=== PATIENT | female | born 1970 | race Caucasian/White ===

== ENCOUNTER → 2016-04-18 | Outpatient (REF) | payer MEDICARE, MEDICAID ==
[~2016-04-18] MED LIST: /MESA40TAB PO; AZAT50TA2 PO; FERR325T3 PO; JANU50TA8 PO; LISI5TAB PO; LOPE2CAP PO; LORA10TA2 PO; NEXI40GR PO; PRED10PA PO
== END ==
LOC: M LAB REF 16:28
PROVIDERS: ATTEND Nurse Practitioner Adult Health
DX: K51.90 Ulcerative colitis, unspecified, without complications (principal); D50.0 Iron deficiency anemia secondary to blood loss (chronic)

== ENCOUNTER 2017-04-01 09:25 | Emergency (ER) | payer MEDICARE, MEDICAID ==
[2017-04-01] MEDS: NS 1,000 ML IV ×2 (10:30→12:16)
[2017-04-01] MEDS: ONDANSETRON 4MG/2ML VIAL (J2405) IV (10:30)
[2017-04-01 10:43] LABS: BASO # 0.1 10^3/uL (0.0-0.2); BASO % 0.2 % (0.0-1.0); IMMATURE GRANULOCYTE # 0.1 10^3/uL (0-0); IMMATURE GRANULOCYTE % 0.5 % (0-0); LYMPH # 0.9 10^3/uL (1.5-4.5); LYMPH % 3.5 % (24.0-44.0); MEAN CORPUSCULAR HEMOGLOBIN 25.9 pg (27.0-33.0); MEAN CORPUSCULAR HGB CONC 32.7 g/dl (32.0-36.5); MEAN CORPUSCULAR VOLUME 79.3 fl (80.0-96.0); MONO # 0.9 10^3/uL (0.0-0.8); MONO % 3.5 % (0.0-5.0); NEUTROPHILS # 22.4 10^3/uL (1.8-7.7); NEUTROPHILS % 92.3 % (36.0-66.0); PLATELET COUNT, AUTOMATED 389 10^3/uL (150-450); RED CELL DISTRIBUTION WIDTH 14.5 % (11.5-14.5); WHITE BLOOD COUNT 24.3 10^3/uL (4.0-10.0)
[2017-04-01 10:57] LABS: ANION GAP 8 MEQ/L (8-16); BLOOD UREA NITROGEN 15 MG/DL (7-18); CALCIUM LEVEL 9.7 MG/DL (8.5-10.1); CARBON DIOXIDE LEVEL 27 MEQ/L (21-32); CHLORIDE LEVEL 100 MEQ/L (98-107); CREATININE FOR GFR 0.67 MG/DL (0.55-1.02); GLOMERULAR FILTRATION RATE > 60.0 (>58); GLUCOSE, FASTING 123 MG/DL (70-105); POTASSIUM SERUM 4.4 MEQ/L (3.5-5.1); SODIUM LEVEL 135 MEQ/L (136-145)
[2017-04-01 11:20] LABS: ALBUMIN/GLOBULIN RATIO 0.89 (1.00-1.93); ALKALINE PHOSPHATASE 99 U/L (45-117); ALT/SGPT 25 U/L (12-78); AMYLASE 55 U/L (25-115); AST/SGOT 15 U/L (7-37); BILIRUBIN,DIRECT 0.2 MG/DL (0.0-0.2); BILIRUBIN,TOTAL 0.5 MG/DL (0.2-1.0); TOTAL PROTEIN 8.5 GM/DL (6.4-8.2)
[2017-04-01] MEDS ORDERED: ISOVUE-370 76% 100ML VIAL (Q9967) As Ordered (12:46)
[2017-04-01 13:04] LABS: CONTROL LINE UCG INT CTR LINE PRESENT
[2017-04-01 13:06] LABS: LACTIC ACID SEPSIS PROTOCOL 1.3 MMOL/L (0.4-2.0)
== END 2017-04-01 15:43 | disposition home or self-care (01) ==
LOC: M ED 09:25
DX: D72.819 Decreased white blood cell count, unspecified (principal); N39.0 Urinary tract infection, site not specified; E11.9 Type 2 diabetes mellitus without complications
CPT/HCPCS: J2405

== ENCOUNTER 2017-04-25 09:57 | Day surgery (SDC) | payer MEDICARE, MEDICAID ==
[2017-04-25] MEDS ORDERED: PROPOFOL 200 MG/20 ML VIAL As Ordered (11:46)
[2017-04-25] MEDS ORDERED: LIDOCAINE 2% INJ 100 MG/5 ML SDV (FOR ANES.) As Ordered (11:46)
== END 2017-04-25 12:50 | disposition home or self-care (01) ==
LOC: M OPP 09:57
DX: Z12.11 Encounter for screening for malignant neoplasm of colon (principal); K51.90 Ulcerative colitis, unspecified, without complications; K57.30 Diverticulosis of large intestine without perforation or abscess without bleeding; K62.89 Other specified diseases of anus and rectum; I10 Essential (primary) hypertension; E11.9 Type 2 diabetes mellitus without complications; K82.9 Disease of gallbladder, unspecified; K21.9 Gastro-esophageal reflux disease without esophagitis; R12 Heartburn; D50.9 Iron deficiency anemia, unspecified; Z79.899 Other long term (current) drug therapy
CPT/HCPCS: 45380

== ENCOUNTER → 2019-12-09 | Outpatient (CLI) | payer MEDICARE, MEDICAID ==
[~2019-12-09] MED LIST changes: +ASAC800T3 PO; +FARX1TAB3 PO; +FERR325T18 PO; +FIBE62TA; +HM A5TAB4 PO; +HUMI40KI2 INJ; +INVO100T PO; +ISOVUE-370 76% 100ML VIAL As Ordered ONE; +LEVA750T7 PO; +LISI10TA4 PO; +LOPE1CAP5 PO; +LORA-674 PO; +METF-838 PO; +OZEM2INJ INJ; +PANT40TA29 PO; +PROBCAP4 PO
--- NOTE | 2019-12-29 14:02 | REP ---
CONTRAST ENHANCED CT OF THE ABDOMEN CLINICAL: History of liver abscesses. TECHNIQUE: Axial contrast enhanced images of the abdomen using 100 cc Isovue-370 intravenous contrast material with coronal and sagittal reformations. COMPARISON: 10/25/2019 FINDINGS: A pigtail catheter is identified extending just beneath the subcapsular left lobe of the liver adjacent to the falciform ligament. Subtle heterogeneous low density changes within the liver are noted representing subtle residual and resolving infectious/inflammatory changes. No significant residual abscess collection is appreciated surrounding the pigtail catheter, and only a small 1 cm fluid collection is suggested just superior to the gallbladder (image 55). The gallbladder demonstrates mild wall thickening and surrounding subtle low density changes again consistent with resolving abscesses and inflammatory changes. These findings are overall considerably improved when compared to prior examination. Spleen, pancreas, bilateral adrenal glands, and kidneys are relatively normal/stable. Left adrenal lesion suggesting adenoma is unchanged. Visualized portions of the enteric system are grossly unremarkable and without obstruction or acute inflammatory process. No ascites or free air in the visualized abdomen. No adenopathy. Abdominal aorta without aneurysm or dissection. Musculoskeletal structures are intact. Lung bases are clear. IMPRESSION: 1. Considerable improvement to the previously identified multiloculated hepatic abscesses. Minimal residual resolving inflammatory infectious changes and small 1 cm fluid collection just superior to the gallbladder and removed from the pigtail catheter. No fluid surrounds the pigtail catheter. 2. The gallbladder demonstrates mild wall thickening consistent with resolving surrounding inflammatory changes. 3. No further acute or new process appreciated. MTDD
== END ==
LOC: M RAD 10:47
PROVIDERS: ATTEND Radiology Diagnostic Radiology
DX: K75.0 Abscess of liver (principal)
CPT/HCPCS: 74160; G0463; J1642; Q9967

== ENCOUNTER → 2019-12-09 | Outpatient (CLI) | payer MEDICARE, MEDICAID ==
[~2019-12-09] MED LIST changes: -ISOVUE-370 76% 100ML VIAL As Ordered ONE
--- NOTE | 2019-12-29 14:01 | REP ---
NONCONTRAST CT OF THE ABDOMEN CLINICAL: Follow up liver abscesses. TECHNIQUE: Axial noncontrast images of the abdomen with coronal and sagittal reformations. COMPARISON: 10/25/2019 FINDINGS: A pigtail catheter is identified extending into the medial left hepatic lobe adjacent to the falciform ligament, and the previously noted abscesses have essentially completely resolved. Continued heterogeneous low density changes involving the gallbladder fossa and surrounding the gallbladder remain prominent but considerably improved and without definite drainable collection. Remainder of the liver appears grossly normal. Spleen, pancreas, right adrenal gland, and bilateral kidneys are normal. Left adrenal gland demonstrates stable 2 cm presumed adenoma. The enteric system is without obstruction or acute inflammatory process. No ascites. No free air. No significant adenopathy. Abdominal aorta without aneurysm. Musculoskeletal structures demonstrate age-related changes. Lung bases are clear. IMPRESSION: 1. Considerable improvement to the previously noted multiple hepatic abscesses. Essentially no residual fluid is identified. Heterogenous changes in the gallbladder fossa appear improved. 2. No new acute process. 3. Stable left adrenal lesion, likely adenoma. MTDD
== END ==
LOC: M RAD 08:04
PROVIDERS: ATTEND Family Medicine
DX: K75.0 Abscess of liver (principal)

== ENCOUNTER → 2019-12-09 | Outpatient (POV) | payer MEDICARE, MEDICAID ==
--- NOTE | 2019-12-10 15:19 | IRCOV ---
[facility] IR Consult Office Visit IR Consult Office Visit DATE: Dec 09, 2019 Patient's carer agreed to this telephone consultation. I spent 30 minutes reviewing patient's history, pathology and microbiology reports, imaging and in discussion with the patient's carer, on the phone. REASON FOR CONSULTATION/CHIEF COMPLAINT: Liver abscess. HISTORY OF PRESENT ILLNESS: 49-year-old female with history of Crohn's disease presented to the hospital October 24 with severe right upper quadrant pain. At that time, she had CT and MRI performed which demonstrated multiloculated hepatic abscess versus liver cancer/cholangiocarcinoma. She had a drain placed in the liver by radiology. She also had a biopsy performed of the liver lesion. Patient's pain is now subsided. Patient denies fevers or chills. Patient denies jaundice, nausea or vomiting. Patient reports recent Crohn's flare as she is off the Maisha. She was taken off Maisha treatment of this liver abscess. ALLERGIES: Please see below. HOME MEDICATIONS: Please see below. PAST MEDICAL HISTORY: Crohn's disease Hypertension Diabetes GERD PAST SURGICAL HISTORY: Left ankle fracture Tonsillectomy FAMILY HISTORY: Noncontributory SOCIAL HISTORY: Nonsmoker. No alcohol or drugs. Denies recent travel. REVIEW OF SYSTEMS: Otherwise negative PHYSICAL EXAMINATION: No video on patient site. LABORATORY DATA: 11/03/2019 hemoglobin 8.1 hematocrit 26.2 WBC 9 platelets 509 10/30/2019 sodium 142 potassium 3.5 BUN 6 creatinine 0.5 GFR greater than 60 Total bilirubin 0.4 direct bilirubin 0.3 AST 17 ALT 15 ALP 192 albumin 1.2 Lipase 67 CA 19 60.7 CEA less than 0.5 AFP less than 1.3 Liver collection: Microbiology: gram-positive rods. Gram-negative rods. BIFIDOBACTERIUM SPECIES. Pathology of liver lesion 10/29/2019: patchy necrosis and severe acute inflammation. Background liver shows steatosis and fibrosis. No malignancy. [facility] in agreement. Imaging: I personally reviewed the CT abdomen with IV contrast performed 12/09/2019. Improved appearance of multiloculated hypodense areas within the li jennie status post drain placement. No collection remains around the drain. There is persistent biliary dilation in the left hepatic lobe. The liver is nodular in contour. No ascites. There is persistent abnormal thickening and density around the gallbladder with possible common bile duct dilation. There is diverticulosis. ASSESSMENT/PLAN: 49-year-old female with acute onset abdominal pain associated with liver abscesses now status post drainage. The follow-up study is not back to normal. There is persistent abnormality around the gallbladder and there is some concerning biliary dilation in the left hepatic lobe. This is associated with the high CA 19. I suggest follow-up imaging in [address] with IV and oral contrast and follow-up with PCP. At this time, it is safe to remove the liver drain and this will be performed. I spent 30 minutes in consultation with the patient. Thank you for this referral. Cc Dr. Keating GI Cc Dr. Shanon Wagoner ID CC Dr. Sherwin Preciado NRAD CC Nicole Horvath [employer] [employer] [facility] [employer] Cc Dr. Eitan Gross. Allergies Coded Allergies: No Known Allergies (Unverified , 10/25/19) Home Medications Scheduled Adalimumab (Humira Pen), 40 MG INJ Q2WK, (Reported) Canagliflozin (Invokana), 100 MG PO DAILY, (Reported) Dapagliflozin Propanediol (Farxiga), 10 MG PO DAILY, (Reported) Ferrous Sulfate (Ferrous Sulfate), 325 MG PO DAILY, (Reported) Lactobacillus Acidophilus (Acidophilus), 1 TAB PO QPM, (Reported) Lisinopril (Lisinopril), 10 MG PO DAILY, (Reported) Loperamide HCl (Loperamide), 2 MG PO ACHS, (Reported) Loratadine (Loratadine), 10 MG PO DAILY, (Reported) Mesalamine (Asacol Hd), 1,600 MG PO TID, (Reported) Metformin HCl (Metformin HCl ER), 2 TAB PO BID, (Reported) Pantoprazole Sodium (Pantoprazole Sodium), 40 MG PO DAILY, (Reported) Semaglutide (Ozempic), 0.25 MG INJ QWEEK, (Reported) KANDICE CEJA MD Dec 10, 2019 15:19
== END ==
LOC: M TMIRPOV 13:23
PROVIDERS: ATTEND Radiology Diagnostic Radiology
DX: Z48.815 Encounter for surgical aftercare following surgery on the digestive system (principal); K83.8 Other specified diseases of biliary tract; K57.30 Diverticulosis of large intestine without perforation or abscess without bleeding; K50.90 Crohn's disease, unspecified, without complications; I10 Essential (primary) hypertension; E11.9 Type 2 diabetes mellitus without complications; K21.9 Gastro-esophageal reflux disease without esophagitis

== ENCOUNTER → 2019-12-18 | Outpatient (REF) | payer MEDICARE, MEDICAID | LOC: M LAB REF 17:22 | PROVIDERS: ATTEND Nurse Practitioner Adult Health | DX: K75.0 Abscess of liver (principal) ==

== ENCOUNTER 2019-12-19 21:35 | Emergency (ER) | payer MEDICARE, MEDICAID ==
[~2019-12-19] VITALS: Ht 154.9 cm; Wt 88.6 kg
[2019-12-19] MEDS ORDERED: HumuLIN R (REGULAR) INSULIN (NovoLIN R) **100U/ML** PER UNIT IV ONE (22:15)
[2019-12-19 22:25] LABS: BASO # 0.1 10^3/uL (0.0-0.2); BASO % 0.6 % (0.0-1.0); EOS # 0.2 10^3/uL (0.0-0.5); EOS % 2.4 % (0.0-3.0); HEMATOCRIT 40.6 % (36.0-47.0); HEMOGLOBIN 12.9 g/dl (12.0-15.5); LYMPH # 2.2 10^3/uL (1.5-5.0); LYMPH % 25.6 % (24.0-44.0); MEAN CORPUSCULAR HEMOGLOBIN 25.9 pg (27.0-33.0); MEAN CORPUSCULAR HGB CONC 31.8 g/dl (32.0-36.5); MEAN CORPUSCULAR VOLUME 81.4 fl (80.0-96.0); MONO # 0.6 10^3/uL (0.0-0.8); MONO % 7.3 % (0.0-5.0); NEUTROPHILS # 5.6 10^3/uL (1.5-8.5); NEUTROPHILS % 63.9 % (36.0-66.0); PLATELET COUNT, AUTOMATED 387 10^3/uL (150-450); RED BLOOD COUNT 4.99 10^6/uL (4.00-5.40); WHITE BLOOD COUNT 8.7 10^3/uL (4.0-10.0)
[2019-12-19 22:28] LABS: VENOUS BASE EXCESS -3.2 (-2.0-2.0); VENOUS HCO3 22.7 MEQ/L (23.0-27.0); VENOUS O2 SATURATION 89.6 % (60.0-80.0); VENOUS PARTIAL PRESSURE CO2 43.9 mmHg (38.0-50.0); VENOUS PARTIAL PRESSURE O2 61.8 mmHg (30.0-50.0); VENOUS PH 7.331 UNITS (7.330-7.430); VENOUS STANDARD HCO3 21.6 MEQ/L
[2019-12-19 22:49] LABS: OSMOLALITY SERUM 311 MOSM/KG (275-295)
[2019-12-19 23:05] LABS: ACETONE/KETONE 1.26 MG/DL (<2.81); ALBUMIN 3.7 GM/DL (3.2-5.2); ALT/SGPT 51 U/L (12-78); BILIRUBIN,DIRECT 0.1 MG/DL (0.0-0.2); BILIRUBIN,TOTAL 0.3 MG/DL (0.2-1.0); BLOOD UREA NITROGEN 27 MG/DL (7-18); CALCIUM LEVEL 10.8 MG/DL (8.5-10.1); CARBON DIOXIDE LEVEL 24 MEQ/L (21-32); CHLORIDE LEVEL 96 MEQ/L (98-107); CK-MB VALUE MASS < 1.0 NG/ML (<3.6); CPK CREATINE PHOSPHOKINASE 31 U/L (26-192); CREATININE FOR GFR 1.23 MG/DL (0.55-1.30); GLOMERULAR FILTRATION RATE 49.4 (>58); GLUCOSE, FASTING 545 MG/DL (70-100); LIPASE 109 U/L (73-393); MAGNESIUM LEVEL 2.1 MG/DL (1.8-2.4); MB/CK RELATIVE INDEX 3.23 (< OR =4); POTASSIUM SERUM 4.4 MEQ/L (3.5-5.1); SODIUM LEVEL 129 MEQ/L (136-145); TOTAL PROTEIN 8.3 GM/DL (6.4-8.2); TROPONIN I < 0.02 NG/ML (< 0.10)
[2019-12-19 23:14] LABS: HEMOGLOBIN A1c 7.9 %
[2019-12-19] MEDS ORDERED: NS 1,000 ML IV ONE (23:15)
[2019-12-20 00:41] VITALS: BP 134/72
--- NOTE | 2019-12-24 20:49 | ECGEPIP ---
[facility] - ED Test Date: 2019-12-19 Pat Name: FANTASMA VALDERRAMA Department: Room: - Gender: Female Journalist: ronald : 1970 Requested By: YARIEL LINDO Order Number: [id number] Reading MD: Yariel Coy Measurements Intervals [place] Rate: 83 P: 43 HI: 142 QRS: 22 QRSD: 84 T: -3 QT: 370 QTc: 436 Interpretive Statements SINUS RHYTHM NONSPECIFIC T-WAVE ABNORMALITY NO PREVIOUS SEE SCANNED DOWNTIME REPORT
== END 2019-12-20 00:43 | disposition home or self-care (01) ==
LOC: M ED 21:35
DX: E11.65 Type 2 diabetes mellitus with hyperglycemia (principal); I10 Essential (primary) hypertension; K21.9 Gastro-esophageal reflux disease without esophagitis; K50.90 Crohn's disease, unspecified, without complications; Z79.899 Other long term (current) drug therapy

== ENCOUNTER → 2020-01-06 | Outpatient (CLI) | payer MEDICARE, MEDICAID ==
[2020-01-06 13:41] LABS: BASO # 0.1 10^3/uL (0.0-0.2); BASO % 0.5 % (0.0-1.0); EOS # 0.3 10^3/uL (0.0-0.5); EOS % 2.7 % (0.0-3.0); HEMATOCRIT 40.5 % (36.0-47.0); HEMOGLOBIN 12.8 g/dl (12.0-15.5); MEAN CORPUSCULAR HEMOGLOBIN 25.9 pg (27.0-33.0); MEAN CORPUSCULAR HGB CONC 31.6 g/dl (32.0-36.5); MONO # 0.6 10^3/uL (0.0-0.8); MONO % 5.3 % (0.0-5.0); NEUTROPHILS # 7.7 10^3/uL (1.5-8.5); PLATELET COUNT, AUTOMATED 347 10^3/uL (150-450); RED BLOOD COUNT 4.94 10^6/uL (4.00-5.40); WHITE BLOOD COUNT 10.7 10^3/uL (4.0-10.0)
[2020-01-06 14:19] LABS: ERYTHROCYTE SEDIMENTATION RATE 73 mm/hr (0-20)
[2020-01-06 14:54] LABS: ALBUMIN 3.4 GM/DL (3.2-5.2); ALT/SGPT 38 U/L (12-78); BILIRUBIN,TOTAL 0.4 MG/DL (0.2-1.0); BLOOD UREA NITROGEN 16 MG/DL (7-18); C REACTIVE PROTEIN QUANTITATIV 3.94 MG/DL (0.00-0.30); CARBON DIOXIDE LEVEL 24 MEQ/L (21-32); CHLORIDE LEVEL 101 MEQ/L (98-107); GLOMERULAR FILTRATION RATE > 60.0 (>58); GLUCOSE, FASTING 241 MG/DL (70-100); POTASSIUM SERUM 4.5 MEQ/L (3.5-5.1); SODIUM LEVEL 135 MEQ/L (136-145); TOTAL PROTEIN 7.6 GM/DL (6.4-8.2)
== END ==
LOC: M PLALAB 11:28
PROVIDERS: ATTEND Internal Medicine Infectious Disease
DX: K75.0 Abscess of liver (principal); R53.83 Other fatigue

== ENCOUNTER → 2020-01-15 | Outpatient (CLI) | payer MEDICARE, MEDICAID ==
--- NOTE | 2020-01-19 11:05 | REP ---
RIGHT UPPER QUADRANT SONOGRAPHY HISTORY: Elevated liver function studies. Liver abscess. COMPARISON: CT study 12/09/2019. SONOGRAPHIC FINDINGS: Scanning through the right upper quadrant of the abdomen demonstrates a contracted gallbladder containing a large gallstone. The common bile duct is 0.8 cm mildly dilated. No intrahepatic ductal dilation is seen. No liver abscess is appreciated. There is no evidence of ascites. No liver mass lesion is seen. No pancreatic abnormality is observed. Normal caliber aorta is seen. No right renal abnormality. The right kidney measures 11.1 x 4.9 x 4.1 cm. IMPRESSION: Mildly prominent common bile duct, 8 mm. Gallbladder contracted around a large gallstone. No abscess or liver mass lesion seen. MTDD
== END ==
LOC: M RAD 07:39
PROVIDERS: ATTEND Internal Medicine Infectious Disease
DX: K80.20 Calculus of gallbladder without cholecystitis without obstruction (principal)

== ENCOUNTER → 2020-01-23 | Outpatient (REF) | payer MEDICARE, MEDICAID | LOC: M LAB REF 17:17 | PROVIDERS: ATTEND Internal Medicine Gastroenterology | DX: K50.10 Crohn's disease of large intestine without complications (principal); K59.1 Functional diarrhea; K21.9 Gastro-esophageal reflux disease without esophagitis ==

== ENCOUNTER → 2020-03-23 | Outpatient (CLI) | payer MEDICARE, MEDICAID ==
[2020-03-23 06:58] LABS: HEMATOCRIT 38.1 % (36.0-47.0); HEMOGLOBIN 12.1 g/dl (12.0-15.5); MEAN CORPUSCULAR HEMOGLOBIN 24.6 pg (27.0-33.0); MEAN CORPUSCULAR HGB CONC 31.8 g/dl (32.0-36.5); MEAN CORPUSCULAR VOLUME 77.4 fl (80.0-96.0); PLATELET COUNT, AUTOMATED 396 10^3/uL (150-450); RED BLOOD COUNT 4.92 10^6/uL (4.00-5.40); WHITE BLOOD COUNT 9.6 10^3/uL (4.0-10.0)
[2020-03-23 07:22] LABS: ERYTHROCYTE SEDIMENTATION RATE 44 mm/hr (0-30)
[2020-03-23 07:23] LABS: ALBUMIN 3.4 GM/DL (3.2-5.2); ALT/SGPT 48 U/L (12-78); BILIRUBIN,TOTAL 0.5 MG/DL (0.2-1.0); BLOOD UREA NITROGEN 16 MG/DL (7-18); C REACTIVE PROTEIN QUANTITATIV 2.79 MG/DL (0.00-0.30); CALCIUM LEVEL 9.6 MG/DL (8.5-10.1); CARBON DIOXIDE LEVEL 27 MEQ/L (21-32); CHLORIDE LEVEL 106 MEQ/L (98-107); CREATININE FOR GFR 0.73 MG/DL (0.55-1.30); GLOMERULAR FILTRATION RATE > 60.0 (>51); GLUCOSE, FASTING 148 MG/DL (70-100); POTASSIUM SERUM 4.3 MEQ/L (3.5-5.1); SODIUM LEVEL 139 MEQ/L (136-145); TOTAL PROTEIN 7.4 GM/DL (6.4-8.2)
--- NOTE | 2020-03-23 07:44 | REP ---
INDICATION: CROHN'S DISEASE, anal fistula, chronic diarrhea, GERD/gastroesophageal reflux, belching symptom. LABS 1ST. COMPARISON: Right upper quadrant abdominal ultrasound dated 01/15/2020.. TECHNIQUE: Right upper quadrant abdominal ultrasound. FINDINGS: The hepatic parenchyma is homogeneous. No hepatic masses or cysts are identified. There is a large gallbladder calculus as previously. The gallbladder appears contracted around this calculus, as previously. There is no gallbladder wall thickening or pericholecystic fluid. There is no intrahepatic or extrahepatic biliary duct dilatation. The common biliary duct measures 5.5 mm in diameter. The pancreas is obscured by bowel gas. The right kidney is normal size measuring 11.5 x 4.8 x 3.5 cm. There is no right renal calculus or hydronephrosis. There is no right renal solid or cystic mass. The right renal pelvis appears extra renal as a congenital variant. IMPRESSION: No significant interval change. The gallbladder is again contracted around a large gallbladder calculus. There is no gallbladder wall thickening or pericholecystic fluid. There is no biliary duct dilatation. There are no hepatic solid or cystic masses. The pancreas is obscured by bowel gas. The right kidney is unremarkable. <Electronically signed by Kosta Vega > 03/23/20 [id number]
[2020-03-23 09:50] LABS: HEPATITIS B SURFACE ANTIGEN NEGATIVE (NEGATIVE)
[2020-03-23 10:19] LABS: HEPATITIS C VIRUS ABY INDEX 0.1 INDEX (<0.8)
== END ==
LOC: M RAD 06:07
PROVIDERS: ATTEND Internal Medicine Gastroenterology
DX: K50.10 Crohn's disease of large intestine without complications (principal); K59.1 Functional diarrhea; K21.9 Gastro-esophageal reflux disease without esophagitis; R14.2 Eructation

== ENCOUNTER → 2020-06-02 | Outpatient (REF) | payer MEDICARE, MEDICAID ==
[~2020-06-02] MED LIST changes: +LISI10TA22 PO; -LISI10TA4 PO
== END ==
LOC: M LAB REF 11:38
PROVIDERS: ATTEND Nurse Practitioner Adult Health
DX: D50.9 Iron deficiency anemia, unspecified (principal)

== ENCOUNTER → 2020-09-24 | Outpatient (CLI) | payer MEDICARE, MEDICAID ==
[~2020-09-24] MED LIST changes: -HM A5TAB4 PO; +LACT1TAB9 PO
--- NOTE | 2020-09-24 13:11 | REPMRS ---
Patient History The patient states she had a clinical breast exam in August 2020. Patient is nulliparous. No known family history of cancer. Patient states no breast complaints today. Patient has signed MRS History Sheet. Digital Woman Screen Mammo: September 24, 2020 - Exam #: [id number] Bilateral CC and MLO view(s) were taken. Technologist: Nguyen Patiño Technologist Prior study comparison: October 07, 2019, bilateral digital mammo screening bilat, performed at [facility] [employer] [facility]. July 29, 2018, bilateral digital mammo screening bilat, performed at [facility] [employer] [facility]. July 26, 2017, bilateral digital mammo screening bilat, performed at [facility]. FINDINGS: There are scattered fibroglandular densities. Screening. Digital screening (2D) mammography was performed bilaterally in the CC and MLO projections. Additionally, breast tomosynthesis (3D mammography) was performed bilaterally in the CC and MLO projections. Todays exam was compared to the prior exam/exams. By history, the patient has no complaints of a palpable breast abnormality or other significant breast complaints. The breasts are unchanged in size and shape. There are no rex-soft tissue densities or spiculated masses. There is no internal architectural distortion.Once again, stable benign appearing calcifications are seen. There are no suspicious rex-calcific clusters. Skin thickening or nipple retraction is not present. IMPRESSION: BI-RADS Category 2- Benign Findings. There is no evidence of malignant alteration of the breasts. Followup examination recommended in one year. The Volpara volumetric breast density category is B, there are scattered areas of fibroglandular densities. This mammogram was read with the assistance of [facility],an FDA approved computer aided detection system for mammography. The lifetime Tyrer-Cuzick score is 12,9 % Negative x-ray reports should not delay surgical consultation if a dominant or clinically suspicious mass is present. Not all breast cancers can be identified by mammography. Therefore, we recommend that you continue to perform regular breast self-examination and physical examination and then promptly contact your physician of any concerns or changes. Adenosis and dense breasts may obscure an underlying neoplasm. Assessment: BI-RADS/ACR category 2 mammogram. Benign Findings. Recommendation Routine screening mammogram of both breasts in 1 year. Electronically Signed By: Mitul Guillen DO 09/24/20 [id number]
== END ==
LOC: M WHC 10:56
PROVIDERS: ATTEND Nurse Practitioner Adult Health
DX: Z12.31 Encounter for screening mammogram for malignant neoplasm of breast (principal)

== ENCOUNTER → 2021-03-15 | Outpatient (REF) | payer MEDICARE, MEDICAID | LOC: M LAB REF 16:42 | PROVIDERS: ATTEND Nurse Practitioner Adult Health | DX: K50.10 Crohn's disease of large intestine without complications (principal) ==

== ENCOUNTER → 2021-06-30 | Outpatient (CLI) | payer MEDICARE, MEDICAID | LOC: M RAD 07:26 | PROVIDERS: ATTEND Internal Medicine Gastroenterology | DX: R14.2 Eructation (principal); R44.8 Other symptoms and signs involving general sensations and perceptions; K29.00 Acute gastritis without bleeding; K21.9 Gastro-esophageal reflux disease without esophagitis; K50.10 Crohn's disease of large intestine without complications | CPT/HCPCS: 78264; A9541 ==

== ENCOUNTER → 2022-03-21 | Outpatient (CLI) | payer MEDICARE, MEDICAID | LOC: M WHC 08:10 | PROVIDERS: ATTEND Nurse Practitioner Adult Health | DX: Z12.31 Encounter for screening mammogram for malignant neoplasm of breast (principal) ==

== ENCOUNTER → 2022-10-02 | Outpatient (CLI) | payer MEDICARE, MEDICAID | LOC: M WHC 08:52 | PROVIDERS: ATTEND Nurse Practitioner Family | DX: R10.9 Unspecified abdominal pain (principal) ==

== ENCOUNTER → 2023-03-23 | Outpatient (CLI) | payer MEDICARE, MEDICAID ==
[~2023-03-23] MED LIST changes: +LORA-1041 PO; -LORA-674 PO
== END ==
LOC: M WUC 08:16
PROVIDERS: ATTEND Internal Medicine Gastroenterology
DX: R21 Rash and other nonspecific skin eruption (principal); R14.2 Eructation

== ENCOUNTER → 2023-04-13 | Outpatient (CLI) | payer MEDICARE, MEDICAID | LOC: M RAD 10:57 | PROVIDERS: ATTEND Internal Medicine Gastroenterology | DX: R21 Rash and other nonspecific skin eruption (principal); R14.2 Eructation | CPT/HCPCS: 78227; A9537 ==

== ENCOUNTER → 2023-11-23 | Outpatient (CLI) | payer MEDICARE, MEDICAID ==
[2023-11-23 08:43] LABS: BLOOD UREA NITROGEN 17 MG/DL (9-23); CREATININE FOR GFR 0.71 MG/DL (0.55-1.30); GLOMERULAR FILTRATION RATE > 60.0 (>51)
== END ==
LOC: M LAB 07:50
PROVIDERS: ATTEND Internal Medicine Gastroenterology
DX: Z01.812 Encounter for preprocedural laboratory examination (principal)

== ENCOUNTER → 2023-11-29 | Outpatient (CLI) | payer MEDICARE, MEDICAID ==
[~2023-11-29] MED LIST changes: +GASTROGRAFIN SOLUTION 30ML As Ordered ONE; +ISOVUE-370 76% 100ML VIAL As Ordered ONE
== END ==
LOC: M RAD 08:48
PROVIDERS: ATTEND Internal Medicine Gastroenterology
DX: K50.10 Crohn's disease of large intestine without complications (principal)
CPT/HCPCS: 74177; Q9963; Q9967

== ENCOUNTER → 2024-01-25 | Outpatient (CLI) | payer MEDICARE, MEDICAID ==
[~2024-01-25] MED LIST changes: -GASTROGRAFIN SOLUTION 30ML As Ordered ONE; -ISOVUE-370 76% 100ML VIAL As Ordered ONE
== END ==
LOC: M LAB 07:19
PROVIDERS: ATTEND Nurse Practitioner Family
DX: D35.02 Benign neoplasm of left adrenal gland (principal)

== ENCOUNTER → 2024-02-07 | Outpatient (REF) | payer MEDICARE, MEDICAID | LOC: M LAB REF 10:17 | PROVIDERS: ATTEND Nurse Practitioner Family | DX: D35.02 Benign neoplasm of left adrenal gland (principal) ==

== ENCOUNTER → 2024-02-27 | Outpatient (CLI) | payer MEDICARE, MEDICAID | LOC: M WHC 09:05 | PROVIDERS: ATTEND Nurse Practitioner Adult Health | DX: Z12.31 Encounter for screening mammogram for malignant neoplasm of breast (principal) ==

== ENCOUNTER → 2024-10-31 | Outpatient (CLI) | payer MEDICARE, MEDICAID ==
[2024-10-31 09:37] LABS: CORTISOL AM 20.9 UG/DL (4.3-22.4)
[2024-11-03 13:33] LABS: CALCIUM LEVEL 9.3 MG/DL (8.5-10.1); CARBON DIOXIDE LEVEL 26 MMOL/L (20-31); CHLORIDE LEVEL 102 MMOL/L (98-107); CREATININE FOR GFR 0.70 MG/DL (0.55-1.30); GLOMERULAR FILTRATION RATE > 90.0 (>51); POTASSIUM SERUM 4.3 MMOL/L (3.5-5.1); SODIUM LEVEL 140 MMOL/L (136-145)
== END ==
LOC: M LAB 08:29
PROVIDERS: ATTEND Nurse Practitioner Family
DX: D35.02 Benign neoplasm of left adrenal gland (principal)

== ENCOUNTER → 2024-11-03 | Outpatient (CLI) | payer MEDICARE, MEDICAID | LOC: M LAB 13:50 | PROVIDERS: ATTEND Nurse Practitioner Family | DX: D35.02 Benign neoplasm of left adrenal gland (principal) ==

== ENCOUNTER → 2024-11-07 | Outpatient (CLI) | payer MEDICARE, MEDICAID ==
[~2024-11-07] MED LIST changes: +ISOVUE-370 76% 100 ML VIAL As Ordered ONE
== END ==
LOC: M RAD 15:58
PROVIDERS: ATTEND Nurse Practitioner Family
DX: D35.02 Benign neoplasm of left adrenal gland (principal)
CPT/HCPCS: 74160; Q9967

== ENCOUNTER → 2024-12-12 | Outpatient (CLI) | payer MEDICARE, MEDICAID ==
[~2024-12-12] MED LIST changes: -ISOVUE-370 76% 100 ML VIAL As Ordered ONE
== END ==
LOC: M LAB 09:18
PROVIDERS: ATTEND Nurse Practitioner Family
DX: D35.02 Benign neoplasm of left adrenal gland (principal)

== ENCOUNTER → 2025-02-11 | Outpatient (CLI) | payer MEDICARE, MEDICAID ==
[2025-02-11 09:57] LABS: PLATELET COUNT, AUTOMATED 359 10^3/uL (150-450)
[2025-02-11 10:22] LABS: C REACTIVE PROTEIN QUANTITATIV 3.2 MG/DL (<1.0)
[2025-02-11 10:23] LABS: ALT/SGPT 24.0 U/L (7.0-40); AST/SGOT 22.0 U/L (<34); CALCIUM LEVEL 9.0 MG/DL (8.5-10.1); CARBON DIOXIDE LEVEL 28.0 MMOL/L (20-31); CHLORIDE LEVEL 102.0 MMOL/L (98-107); CREATININE FOR GFR 0.81 MG/DL (0.55-1.30); GLOMERULAR FILTRATION RATE 85.7 (>51); POTASSIUM SERUM 4.7 MMOL/L (3.5-5.1); SODIUM LEVEL 137.0 MMOL/L (136-145)
== END ==
LOC: M LAB 08:33
PROVIDERS: ATTEND Internal Medicine Gastroenterology
DX: K50.10 Crohn's disease of large intestine without complications (principal); R14.2 Eructation; R16.0 Hepatomegaly, not elsewhere classified

== ENCOUNTER → 2025-03-18 | Outpatient (CLI) | payer MEDICARE, MEDICAID | LOC: M WHC 09:39 | PROVIDERS: ATTEND Nurse Practitioner Adult Health | DX: Z12.31 Encounter for screening mammogram for malignant neoplasm of breast (principal) ==